=== PATIENT | male | born 1965 | race African-American/Black ===

== ENCOUNTER → 2016-11-04 | Outpatient (CLI) | payer OTHER ==
--- NOTE | 2016-11-04 18:23 | REP ---
LEFT FOOT SERIES, FOUR VIEWS: HISTORY: Achilles tendonitis. FINDINGS: Four views of the left foot demonstrate Achilles and plantar calcaneal spurring. Bones, joints, and soft-tissues are otherwise radiographically normal. There is some minimal spurring at the IP joint of the great toe. IMPRESSION: Heal spurring. Signed by Manan Johnson MD 11/04/2016 06:59 P
== END ==
LOC: M WUC 09:18
PROVIDERS: ATTEND Physician Assistant
DX: M76.62 Achilles tendinitis, left leg (principal); M77.30 Calcaneal spur, unspecified foot

== ENCOUNTER 2017-10-26 09:58 | Emergency (ER) | payer OTHER ==
[2017-10-26] MEDS: NS 1,000 ML IV ×2 (10:59→13:27)
[2017-10-26] MEDS: ONDANSETRON 4MG/2ML VIAL (J2405) IV (10:59)
[2017-10-26 11:14] LABS: VENOUS BASE EXCESS 2.3 (-2.0-2.0); VENOUS O2 SATURATION 92.9 % (60.0-80.0); VENOUS PARTIAL PRESSURE CO2 45.9 mmHg (38.0-50.0); VENOUS PARTIAL PRESSURE O2 66.4 mmHg (30.0-50.0); VENOUS STANDARD HCO3 26.4 MEQ/L; VENOUS TOTAL CO2 29.3 MEQ/L (24.0-28.0)
[2017-10-26 11:15] LABS: BASO % 0.2 % (0.0-1.0); EOS # 0.1 10^3/uL (0.0-0.50); EOS % 0.5 % (0.0-3.0); IMMATURE GRANULOCYTE # 0.1 10^3/uL (0-0); IMMATURE GRANULOCYTE % 0.6 % (0-0); LYMPH # 1.2 10^3/uL (1.5-4.5); LYMPH % 9.3 % (24.0-44.0); MEAN CORPUSCULAR HEMOGLOBIN 31.1 pg (27.0-33.0); MEAN CORPUSCULAR HGB CONC 34.9 g/dl (32.0-36.5); MEAN CORPUSCULAR VOLUME 88.9 fl (80.0-96.0); MONO % 7.7 % (0.0-5.0); NEUTROPHILS # 10.2 10^3/uL (1.8-7.7); NEUTROPHILS % 81.7 % (36.0-66.0); PLATELET COUNT, AUTOMATED 256 10^3/uL (150-450); RED CELL DISTRIBUTION WIDTH 12.6 % (11.5-14.5); WHITE BLOOD COUNT 12.5 10^3/uL (4.0-10.0)
[2017-10-26 11:42] LABS: OSMOLALITY SERUM 296 MOSM/KG (275-295)
[2017-10-26 11:49] LABS: ESTIMATED AVERAGE GLUCOSE 137 MG/DL (60-110)
[2017-10-26 12:03] LABS: ALBUMIN 4.1 GM/DL (3.2-5.2); ALBUMIN/GLOBULIN RATIO 0.91 (1.00-1.93); ALKALINE PHOSPHATASE 81 U/L (45-117); ALT/SGPT 300 U/L (12-78); AMYLASE 80 U/L (25-115); ANION GAP 10 MEQ/L (8-16); AST/SGOT 319 U/L (7-37); BILIRUBIN,TOTAL 1.2 MG/DL (0.2-1.0); BLOOD UREA NITROGEN 38 MG/DL (7-18); CALCIUM LEVEL 9.6 MG/DL (8.5-10.1); CARBON DIOXIDE LEVEL 31 MEQ/L (21-32); CHLORIDE LEVEL 91 MEQ/L (98-107); CREATININE FOR GFR 1.44 MG/DL (0.70-1.30); GLOMERULAR FILTRATION RATE > 60.0 (>56); GLUCOSE, FASTING 154 MG/DL (70-105); MAGNESIUM LEVEL 2.1 MG/DL (1.8-2.4); PHOSPHORUS LEVEL 3.4 MG/DL (2.5-4.9); POTASSIUM SERUM 3.5 MEQ/L (3.5-5.1); SODIUM LEVEL 132 MEQ/L (136-145); TOTAL PROTEIN 8.6 GM/DL (6.4-8.2)
[2017-10-26] MEDS ORDERED: ISOVUE-370 76% 100ML VIAL (Q9967) As Ordered (12:04)
[2017-10-26] MEDS: METOCLOPRAMIDE INJ 10MG/2ML VIAL (J2765) IV (13:27)
[2017-10-26 13:38] LABS: BILIRUBIN,DIRECT 0.3 MG/DL (0.0-0.2)
[2017-10-26] MEDS: MORPHINE 4 MG/ML 1ML SYRINGE IV (15:59)
[2017-10-26] MEDS: ONDANSETRON 4 MG ORAL DISINTEGRATING TAB (S0181) PO (16:36)
[2017-10-26] MEDS: PERCOCET 5MG/325MG TAB PO (16:36)
== END 2017-10-26 17:12 | disposition home or self-care (01) ==
LOC: M ED 09:58
DX: K75.81 Nonalcoholic steatohepatitis (NASH) (principal); E11.9 Type 2 diabetes mellitus without complications; M89.9 Disorder of bone, unspecified; I10 Essential (primary) hypertension; E78.4 Other hyperlipidemia
CPT/HCPCS: J2405

== ENCOUNTER 2018-05-01 11:23 | Inpatient (IN) | payer OTHER ==
[2018-05-01 12:15] LABS: VENOUS BASE EXCESS 1.3 (-2.0-2.0); VENOUS HCO3 27.7 MEQ/L (23.0-27.0); VENOUS O2 SATURATION 65.7 % (60.0-80.0); VENOUS PARTIAL PRESSURE CO2 50.3 mmHg (38.0-50.0); VENOUS PARTIAL PRESSURE O2 35.2 mmHg (30.0-50.0); VENOUS PH 7.358 UNITS (7.330-7.430); VENOUS STANDARD HCO3 24.8 MEQ/L; VENOUS TOTAL CO2 29.2 MEQ/L (24.0-28.0)
[2018-05-01 12:19] LABS: BASO # 0.1 10^3/uL (0.0-0.2); BASO % 0.8 % (0.0-1.0); EOS # 0.7 10^3/uL (0.0-0.50); EOS % 6.8 % (0.0-3.0); HEMATOCRIT 38.1 % (42.0-52.0); HEMOGLOBIN 13.9 g/dl (13.5-17.5); IMMATURE GRANULOCYTE % 0.4 % (0-3.0); LYMPH # 1.3 10^3/uL (1.5-4.5); LYMPH % 12.9 % (24.0-44.0); MEAN CORPUSCULAR HGB CONC 36.5 g/dl (32.0-36.5); MEAN CORPUSCULAR VOLUME 87.8 fl (80.0-96.0); MONO # 0.7 10^3/uL (0.0-0.8); MONO % 6.8 % (0.0-5.0); NEUTROPHILS # 7.4 10^3/uL (1.8-7.7); NEUTROPHILS % 72.3 % (36.0-66.0); PLATELET COUNT, AUTOMATED 309 10^3/uL (150-450); RED BLOOD COUNT 4.34 10^6/uL (4.30-6.10); RED CELL DISTRIBUTION WIDTH 12.3 % (11.5-14.5); WHITE BLOOD COUNT 10.3 10^3/uL (4.0-10.0)
[2018-05-01 12:22] LABS: APPEARANCE, URINE CLEAR (CLEAR); BACTERIA, URINE AUTO NEGATIVE (NEGATIVE); BILIRUBIN, URINE AUTO NEGATIVE (NEGATIVE); BLOOD, URINE BLOOD NEGATIVE (NEGATIVE); COLOR, URINE STRAW (YELLOW); GLUCOSE, URINE (UA) AUTO 3+ mg/dL (NEGATIVE); KETONE, URINE AUTO NEGATIVE (NEGATIVE); LEUKOCYTE ESTERASE, URINE AUTO NEGATIVE (NEGATIVE); NITRITE, URINE AUTO NEGATIVE (NEGATIVE); PROTEIN, URINE AUTO NEGATIVE (NEGATIVE); RBC, URINE AUTO 2 /HPF (0-3); SPECIFIC GRAVITY URINE AUTO 1.027 (1.002-1.035); SQUAMOUS EPITHELIAL CELL UR AU 0 /HPF (0-6); UROBILINOGEN, URINE AUTO 0.2 mg/dL (0.0-2.0); WBC, URINE AUTO 0 /HPF (0-3)
[2018-05-01] MEDS: NS 1,000 ML IV ×3 (12:39→22:02)
[2018-05-01 12:43] LABS: ALBUMIN 3.3 GM/DL (3.2-5.2); ALBUMIN/GLOBULIN RATIO 0.87 (1.00-1.93); ALKALINE PHOSPHATASE 112 U/L (45-117); ANION GAP 10 MEQ/L (8-16); AST/SGOT 18 U/L (7-37); BILIRUBIN,TOTAL 0.3 MG/DL (0.2-1.0); BLOOD UREA NITROGEN 30 MG/DL (7-18); CALCIUM LEVEL 8.8 MG/DL (8.5-10.1); CARBON DIOXIDE LEVEL 29 MEQ/L (21-32); CHLORIDE LEVEL 90 MEQ/L (98-107); CREATININE FOR GFR 1.73 MG/DL (0.70-1.30); GLOMERULAR FILTRATION RATE 53.4 (>56); POTASSIUM SERUM 4.9 MEQ/L (3.5-5.1); SODIUM LEVEL 129 MEQ/L (136-145); TOTAL PROTEIN 7.1 GM/DL (6.4-8.2)
[2018-05-01] MEDS ORDERED: INSULIN IV RATE CHANGE DOCUMENTATION ML/HR XX (12:45)
[2018-05-01 12:50] LABS: ALT/SGPT 32 U/L (12-78)
[2018-05-01] MEDS: INSULIN HUMAN REGULAR 100 UNITS in NS 99 ML IV (12:50)
[2018-05-01 12:51] LABS: GLUCOSE, FASTING 746 MG/DL (70-100)
[2018-05-01 13:05] LABS: ALBUMIN 3.3 GM/DL (3.2-5.2); ALBUMIN/GLOBULIN RATIO 0.85 (1.00-1.93); ALKALINE PHOSPHATASE 116 U/L (45-117); AST/SGOT 15 U/L (7-37); BILIRUBIN,DIRECT < 0.1 MG/DL (0.0-0.2); BILIRUBIN,TOTAL 0.4 MG/DL (0.2-1.0); ESTIMATED AVERAGE GLUCOSE 223 MG/DL (60-110); ETHYL ALCOHOL (ETHANOL) < 0.003 % (0.000-0.010); HEMOGLOBIN A1c 9.4 %; LIPASE 270 U/L (73-393); TOTAL PROTEIN 7.2 GM/DL (6.4-8.2)
[2018-05-01 13:06] LABS: ALT/SGPT 32 U/L (12-78)
[2018-05-01 13:07] LABS: AMPHETAMINES LEVEL URINE NEGATIVE (NEGATIVE); BARBITURATES URINE NEGATIVE (NEGATIVE); BENZODIAZEPINES URINE POSITIVE (NEGATIVE); CANNABINOIDS URINE NEGATIVE (NEGATIVE); COCAINE METABOLITE URINE NEGATIVE (NEGATIVE); METHADONE URINE NEGATIVE (NEGATIVE); OPIATES URINE NEGATIVE (NEGATIVE); PHENCYCLIDINE URINE NEGATIVE (NEGATIVE)
[2018-05-01 13:14] LABS: LACTIC ACID SEPSIS PROTOCOL 2.3 MMOL/L (0.4-2.0)
[2018-05-01 13:52] LABS: BEDSIDE GLUCOSE 588 MG/DL (70-105)
[2018-05-01 14:39] LABS: VENOUS BASE EXCESS -2.6 (-2.0-2.0); VENOUS HCO3 22.8 MEQ/L (23.0-27.0); VENOUS O2 SATURATION 78.3 % (60.0-80.0); VENOUS PARTIAL PRESSURE CO2 41.6 mmHg (38.0-50.0); VENOUS PARTIAL PRESSURE O2 43.4 mmHg (30.0-50.0); VENOUS PH 7.357 UNITS (7.330-7.430); VENOUS STANDARD HCO3 21.9 MEQ/L; VENOUS TOTAL CO2 24.1 MEQ/L (24.0-28.0)
[2018-05-01] MEDS ORDERED: ACETAMINOPHEN TAB 650MG DOSE (2X325MG) PO (14:45)
[2018-05-01 15:26] LABS: BEDSIDE GLUCOSE 356 MG/DL (70-105)
[2018-05-01] MEDS: HEPARIN SOD (PORCINE) 5000 UNITS/ML VIAL SC ×2 (16:08→20:59)
[2018-05-01 16:14] LABS: BEDSIDE GLUCOSE 263 MG/DL (70-105)
[2018-05-01] MEDS: LEVEMIR (INSULIN DETEMIR) 1 UNITS/0.01ML SC (16:14)
[2018-05-01] MEDS ORDERED: zolPIDEM TARTRATE 5 MG TAB PO (16:15)
[2018-05-01] MEDS ORDERED: SUCRALFATE SUSP 1GM/10ML UD PO (16:15)
[2018-05-01 17:12] LABS: BEDSIDE GLUCOSE 239 MG/DL (70-105)
[2018-05-01 17:29] LABS: ANION GAP 7 MEQ/L (8-16); BLOOD UREA NITROGEN 32 MG/DL (7-18); CALCIUM LEVEL 9.7 MG/DL (8.5-10.1); CARBON DIOXIDE LEVEL 31 MEQ/L (21-32); CHLORIDE LEVEL 100 MEQ/L (98-107); GLOMERULAR FILTRATION RATE 58.4 (>56); GLUCOSE, FASTING 239 MG/DL (70-100); SODIUM LEVEL 138 MEQ/L (136-145)
[2018-05-01] MEDS: HumaLOG INSULIN (NovoLOG) PER UNIT SC ×2 (17:30→20:57)
[2018-05-01] MEDS: FAMOTIDINE 20 MG TAB PO (19:04)
[2018-05-01 20:52] LABS: BEDSIDE GLUCOSE 468 MG/DL (70-105)
[2018-05-01] MEDS: busPIRone 5 MG TAB PO (20:56)
[2018-05-01] MEDS: GABAPENTIN 400 MG CAP PO (20:56)
[2018-05-01] MEDS: POLYVINYL ALCOHOL OPHTH SOLN 15 ML(LIQUITEARS) OU (20:58)
[2018-05-01] MEDS: CALCIPOTRIENE CREAM 0.005% 60GM TOP (20:58)
[2018-05-01] MEDS: METOPROLOL SUCC (TopROL XL) 50MG **XL** TAB PO (20:58)
[2018-05-01] MEDS: CLOBETASOL PROP 0.05% OINT 30 GM TOP (20:58)
[2018-05-01 21:30] LABS: ANION GAP 9 MEQ/L (8-16); BLOOD UREA NITROGEN 31 MG/DL (7-18); CALCIUM LEVEL 8.1 MG/DL (8.5-10.1); CARBON DIOXIDE LEVEL 29 MEQ/L (21-32); CHLORIDE LEVEL 98 MEQ/L (98-107); CREATININE FOR GFR 1.54 MG/DL (0.70-1.30); GLOMERULAR FILTRATION RATE > 60.0 (>56); POTASSIUM SERUM 3.9 MEQ/L (3.5-5.1); SODIUM LEVEL 136 MEQ/L (136-145)
[2018-05-01 21:32] LABS: GLUCOSE, FASTING 434 MG/DL (70-100)
[2018-05-02 02:11] LABS: BEDSIDE GLUCOSE 345 MG/DL (70-105)
[2018-05-02 02:59] LABS: ANION GAP 7 MEQ/L (8-16); BLOOD UREA NITROGEN 30 MG/DL (7-18); CALCIUM LEVEL 8.4 MG/DL (8.5-10.1); CARBON DIOXIDE LEVEL 29 MEQ/L (21-32); CHLORIDE LEVEL 100 MEQ/L (98-107); CREATININE FOR GFR 1.47 MG/DL (0.70-1.30); GLOMERULAR FILTRATION RATE > 60.0 (>56); GLUCOSE, FASTING 353 MG/DL (70-100); POTASSIUM SERUM 3.8 MEQ/L (3.5-5.1); SODIUM LEVEL 136 MEQ/L (136-145)
[2018-05-02] MEDS: HEPARIN SOD (PORCINE) 5000 UNITS/ML VIAL SC ×4 (05:35→21:10)
[2018-05-02] MEDS: NS 1,000 ML IV (05:35)
[2018-05-02 05:47] LABS: BASO # 0.1 10^3/uL (0.0-0.2); BASO % 0.7 % (0.0-1.0); EOS # 0.9 10^3/uL (0.0-0.50); EOS % 11.3 % (0.0-3.0); HEMATOCRIT 36.6 % (42.0-52.0); HEMOGLOBIN 12.4 g/dl (13.5-17.5); IMMATURE GRANULOCYTE % 0.6 % (0-3.0); LYMPH # 1.9 10^3/uL (1.5-4.5); LYMPH % 24.1 % (24.0-44.0); MEAN CORPUSCULAR HEMOGLOBIN 30.5 pg (27.0-33.0); MEAN CORPUSCULAR HGB CONC 33.9 g/dl (32.0-36.5); MEAN CORPUSCULAR VOLUME 90.1 fl (80.0-96.0); MONO # 0.7 10^3/uL (0.0-0.8); MONO % 9.2 % (0.0-5.0); NEUTROPHILS # 4.3 10^3/uL (1.8-7.7); NEUTROPHILS % 54.1 % (36.0-66.0); PLATELET COUNT, AUTOMATED 256 10^3/uL (150-450); RED BLOOD COUNT 4.06 10^6/uL (4.30-6.10); RED CELL DISTRIBUTION WIDTH 12.2 % (11.5-14.5)
[2018-05-02 05:59] LABS: ANION GAP 8 MEQ/L (8-16); BLOOD UREA NITROGEN 27 MG/DL (7-18); CALCIUM LEVEL 7.9 MG/DL (8.5-10.1); CARBON DIOXIDE LEVEL 28 MEQ/L (21-32); CHLORIDE LEVEL 101 MEQ/L (98-107); CREATININE FOR GFR 1.32 MG/DL (0.70-1.30); GLOMERULAR FILTRATION RATE > 60.0 (>56); GLUCOSE, FASTING 368 MG/DL (70-100); POTASSIUM SERUM 4.5 MEQ/L (3.5-5.1); SODIUM LEVEL 137 MEQ/L (136-145)
[2018-05-02] MEDS: HumaLOG INSULIN (NovoLOG) PER UNIT SC ×4 (07:57→21:07)
[2018-05-02] MEDS: ASPIRIN 81 MG ENTERIC TAB PO (08:00)
[2018-05-02] MEDS: ALLOPURINOL 300 MG TAB PO (08:00)
[2018-05-02] MEDS: ROSUVASTATIN 10 MG TAB (CRESTOR) PO (08:00)
[2018-05-02] MEDS: busPIRone 5 MG TAB PO ×2 (08:00→21:08)
[2018-05-02] MEDS: OMEPRAZOLE 20 MG CAP PO (08:00)
[2018-05-02] MEDS: SERTRALINE HCL 50 MG TAB PO (08:00)
[2018-05-02] MEDS: CALCIPOTRIENE CREAM 0.005% 60GM TOP ×2 (08:01→21:10)
[2018-05-02] MEDS: POLYVINYL ALCOHOL OPHTH SOLN 15 ML(LIQUITEARS) OU ×3 (08:02→21:10)
[2018-05-02] MEDS: CLOBETASOL PROP 0.05% OINT 30 GM TOP ×2 (08:02→21:10)
[2018-05-02 12:01] LABS: BEDSIDE GLUCOSE 392 MG/DL (70-105)
[2018-05-02 14:00] LABS: BEDSIDE GLUCOSE > 600 MG/DL (70-105)
[2018-05-02 17:14] LABS: BEDSIDE GLUCOSE 272 MG/DL (70-105)
[2018-05-02] MEDS: FAMOTIDINE 20 MG TAB PO (18:03)
[2018-05-02 20:09] LABS: BEDSIDE GLUCOSE 332 MG/DL (70-105)
[2018-05-02] MEDS: LEVEMIR (INSULIN DETEMIR) 1 UNITS/0.01ML SC (21:08)
[2018-05-02] MEDS: GABAPENTIN 400 MG CAP PO (21:08)
[2018-05-02] MEDS: METOPROLOL SUCC (TopROL XL) 50MG **XL** TAB PO (21:09)
[2018-05-03 05:59] LABS: BEDSIDE GLUCOSE 271 MG/DL (70-105)
[2018-05-03] MEDS: ALLOPURINOL 300 MG TAB PO (08:11)
[2018-05-03] MEDS: busPIRone 5 MG TAB PO ×2 (08:11→20:48)
[2018-05-03] MEDS: ASPIRIN 81 MG ENTERIC TAB PO (08:11)
[2018-05-03] MEDS: OMEPRAZOLE 20 MG CAP PO (08:11)
[2018-05-03] MEDS: SERTRALINE HCL 50 MG TAB PO (08:12)
[2018-05-03] MEDS: ROSUVASTATIN 10 MG TAB (CRESTOR) PO (08:12)
[2018-05-03] MEDS: CLOBETASOL PROP 0.05% OINT 30 GM TOP ×2 (08:13→20:50)
[2018-05-03] MEDS: HumaLOG INSULIN (NovoLOG) PER UNIT SC ×4 (08:13→20:49)
[2018-05-03] MEDS: CALCIPOTRIENE CREAM 0.005% 60GM TOP ×2 (08:13→20:50)
[2018-05-03] MEDS: POLYVINYL ALCOHOL OPHTH SOLN 15 ML(LIQUITEARS) OU ×3 (08:13→20:50)
[2018-05-03 11:35] LABS: BEDSIDE GLUCOSE 330 MG/DL (70-105)
[2018-05-03] MEDS: HEPARIN SOD (PORCINE) 5000 UNITS/ML VIAL SC ×2 (13:01→20:52)
[2018-05-03 17:03] LABS: BEDSIDE GLUCOSE 370 MG/DL (70-105)
[2018-05-03 17:49] LABS: CK-MB VALUE MASS 1.3 NG/ML (<3.6); CPK CREATINE PHOSPHOKINASE 104 U/L (39-308); LIPASE 193 U/L (73-393); MB/CK RELATIVE INDEX 1.25 (< OR =4); TROPONIN I < 0.02 NG/ML (< 0.10)
[2018-05-03] MEDS: FAMOTIDINE 20 MG TAB PO (18:21)
[2018-05-03 19:59] LABS: BEDSIDE GLUCOSE 351 MG/DL (70-105)
[2018-05-03] MEDS: GABAPENTIN 400 MG CAP PO (20:48)
[2018-05-03] MEDS: METOPROLOL SUCC (TopROL XL) 50MG **XL** TAB PO (20:48)
[2018-05-03] MEDS: LEVEMIR (INSULIN DETEMIR) 1 UNITS/0.01ML SC (20:49)
[2018-05-04] MEDS: HEPARIN SOD (PORCINE) 5000 UNITS/ML VIAL SC ×2 (05:41→12:44)
[2018-05-04 06:22] LABS: BEDSIDE GLUCOSE 273 MG/DL (70-105)
[2018-05-04] MEDS: ROSUVASTATIN 10 MG TAB (CRESTOR) PO (07:38)
[2018-05-04] MEDS: HumaLOG INSULIN (NovoLOG) PER UNIT SC ×2 (07:38→12:12)
[2018-05-04] MEDS: ALLOPURINOL 300 MG TAB PO (07:38)
[2018-05-04] MEDS: busPIRone 5 MG TAB PO (07:38)
[2018-05-04] MEDS: OMEPRAZOLE 20 MG CAP PO (07:39)
[2018-05-04] MEDS: CALCIPOTRIENE CREAM 0.005% 60GM TOP (07:39)
[2018-05-04] MEDS: SERTRALINE HCL 50 MG TAB PO (07:39)
[2018-05-04] MEDS: POLYVINYL ALCOHOL OPHTH SOLN 15 ML(LIQUITEARS) OU (07:39)
[2018-05-04] MEDS: ASPIRIN 81 MG ENTERIC TAB PO (07:39)
[2018-05-04] MEDS: CLOBETASOL PROP 0.05% OINT 30 GM TOP (07:40)
[2018-05-04 08:32] LABS: HEMATOCRIT 36.8 % (42.0-52.0); HEMOGLOBIN 12.8 g/dl (13.5-17.5); MEAN CORPUSCULAR HEMOGLOBIN 31.3 pg (27.0-33.0); MEAN CORPUSCULAR HGB CONC 34.8 g/dl (32.0-36.5); PLATELET COUNT, AUTOMATED 281 10^3/uL (150-450); RED BLOOD COUNT 4.09 10^6/uL (4.30-6.10); RED CELL DISTRIBUTION WIDTH 12.2 % (11.5-14.5); WHITE BLOOD COUNT 8.6 10^3/uL (4.0-10.0)
[2018-05-04 09:00] LABS: ANION GAP 10 MEQ/L (8-16); BLOOD UREA NITROGEN 19 MG/DL (7-18); CALCIUM LEVEL 8.2 MG/DL (8.5-10.1); CARBON DIOXIDE LEVEL 25 MEQ/L (21-32); CHLORIDE LEVEL 101 MEQ/L (98-107); CREATININE FOR GFR 1.24 MG/DL (0.70-1.30); GLOMERULAR FILTRATION RATE > 60.0 (>56); POTASSIUM SERUM 4.7 MEQ/L (3.5-5.1); SODIUM LEVEL 136 MEQ/L (136-145)
[2018-05-04 09:12] LABS: GLUCOSE, FASTING 406 MG/DL (70-100)
[2018-05-04 11:36] LABS: BEDSIDE GLUCOSE 320 MG/DL (70-105)
[2018-05-04] MEDS ORDERED: LEVEMIR (INSULIN DETEMIR) 1 UNITS/0.01ML SC (21:00)
== END 2018-05-04 13:53 | disposition home or self-care (01) | DRG 638 ==
LOC: M ED 11:23 → M ED INP 14:43 → M MSPAV 17:19
DX: E11.65 Type 2 diabetes mellitus with hyperglycemia (principal); E87.1 Hypo-osmolality and hyponatremia; N17.9 Acute kidney failure, unspecified; E11.40 Type 2 diabetes mellitus with diabetic neuropathy, unspecified; F32.9 Major depressive disorder, single episode, unspecified; F41.9 Anxiety disorder, unspecified; F43.10 Post-traumatic stress disorder, unspecified; I10 Essential (primary) hypertension; E78.5 Hyperlipidemia, unspecified; K21.9 Gastro-esophageal reflux disease without esophagitis; M10.9 Gout, unspecified; Z79.84 Long term (current) use of oral hypoglycemic drugs; Z79.82 Long term (current) use of aspirin; Z79.899 Other long term (current) drug therapy; Z91.013 Allergy to seafood

== ENCOUNTER 2019-08-27 06:54 | Emergency (ER) | payer OTHER ==
[~2019-08-27] VITALS: Ht 175.3 cm; Wt 107.7 kg
[~2019-08-27 06:54] MED LIST: ALLO10TA PO; ARTIDRO2 OU; ASPI81TA26 PO; ATOR80TA59 PO; BUSP5TA PO; CALC0.009 TOP; CALC600T6 PO; CHLO10CA PO; CLOB05OI TOP; COLC1TAB13 PO; CRES40TA PO; D-CA1KIT XX; GABA-845 PO; INSUDET SC; INSUHUMDS SC; LISI-538 PO; LISI40TA PO; MELO15TA28 PO; MELO7.5T7 PO; METF-791 PO; METF500T13 PO; METO1TAB33 PO; OMEP-358 PO; ONDA8TAB8 PO; OXYC1TAB23 PO; PANT40TA3 PO; PATIENT COMMENT; RANI300T PO; SERT-138 PO; SUCR10SS PO; ZOLP10TA2 PO; ZYLO300T6 PO; [UNRECOGNIZED DRUG - OTHER] XX
[2019-08-27 06:55] VITALS: BP 132/83
[2019-08-27] MEDS ORDERED: AMOX500C PO (07:17)
[2019-08-27] MEDS ORDERED: KETO10TAB PO (07:19)
== END 2019-08-27 07:38 | disposition home or self-care (01) ==
LOC: M ED 06:54
DX: R22.0 Localized swelling, mass and lump, head (principal); K08.89 Other specified disorders of teeth and supporting structures; Z98.818 Other dental procedure status; E11.9 Type 2 diabetes mellitus without complications; I10 Essential (primary) hypertension; K21.9 Gastro-esophageal reflux disease without esophagitis; M10.9 Gout, unspecified; G62.9 Polyneuropathy, unspecified; Z91.018 Allergy to other foods; Z79.899 Other long term (current) drug therapy; Z79.82 Long term (current) use of aspirin; Z79.4 Long term (current) use of insulin; F17.210 Nicotine dependence, cigarettes, uncomplicated

== ENCOUNTER 2023-04-08 04:01 | Emergency (ER) | payer OTHER ==
[~2023-04-08] VITALS: Ht 175.3 cm; Wt 113.6 kg
[~2023-04-08 04:01] MED LIST changes: +AMOX500C PO; -ARTIDRO2 OU; +ARTIDRO4 OU; +CALC600T17 PO; -CALC600T6 PO; -CHLO10CA PO; +CHLO10CA6 PO; +COLC0.6T47 PO; -COLC1TAB13 PO; +GABA-283 PO; -GABA-845 PO; +KETO10TAB PO; -LISI-538 PO; +LISI20TA33 PO; -LISI40TA PO; +LISI40TA4 PO; -METF-791 PO; +METF-838 PO; +PANT40TA29 PO; -PANT40TA3 PO; -SUCR10SS PO; +SUCR1ORA2 PO
[2023-04-08 04:02] VITALS: BP 106/57; TEMP 97.1; O2SAT 100
== END 2023-04-08 07:39 | disposition home or self-care (01) ==
LOC: M ED 04:01
DX: S89.91XA Unspecified injury of right lower leg, initial encounter (principal); S80.211A Abrasion, right knee, initial encounter; W22.8XXA Striking against or struck by other objects, initial encounter; Y92.009 Unspecified place in unspecified non-institutional (private) residence as the place of occurrence of the external cause; Y93.89 Activity, other specified; Y99.8 Other external cause status; Z91.013 Allergy to seafood; Z79.4 Long term (current) use of insulin; Z79.899 Other long term (current) drug therapy

== ENCOUNTER 2023-08-06 13:43 | Emergency (ER) | payer OTHER ==
[~2023-08-06] VITALS: Ht 144.8 cm; Wt 96.6 kg
[~2023-08-06 13:43] MED LIST changes: -GABA-283 PO; +GABA-284 PO
[2023-08-06] MEDS ORDERED: LIDOCAINE 2% MDV 20ML VIAL As Ordered ONE (17:14)
[2023-08-06] MEDS ORDERED: LIDOCAINE 2% MDV 20ML VIAL SC ONE (17:15)
[2023-08-06] MEDS ORDERED: BOOSTRIX VACCINE (TETANUS/DIPHTH/ACEL. PERTUSSIS) 0.5ML SYR IM ONE (17:15)
[2023-08-06 18:08] VITALS: BP 115/72; TEMP 97.6; O2SAT 96
== END 2023-08-06 18:26 | disposition home or self-care (01) ==
LOC: M ED 13:43
DX: S61.210A Laceration without foreign body of right index finger without damage to nail, initial encounter (principal); W31.2XXA Contact with powered woodworking and forming machines, initial encounter; Y92.009 Unspecified place in unspecified non-institutional (private) residence as the place of occurrence of the external cause; Y93.89 Activity, other specified; Y99.8 Other external cause status; E11.9 Type 2 diabetes mellitus without complications; K21.9 Gastro-esophageal reflux disease without esophagitis; M54.50 Low back pain, unspecified; F41.9 Anxiety disorder, unspecified; F32.A Depression, unspecified; F43.10 Post-traumatic stress disorder, unspecified; G47.33 Obstructive sleep apnea (adult) (pediatric); I10 Essential (primary) hypertension; E78.5 Hyperlipidemia, unspecified; Z91.013 Allergy to seafood; Z79.4 Long term (current) use of insulin; Z79.899 Other long term (current) drug therapy; Z79.82 Long term (current) use of aspirin